=== PATIENT | male | born 1985 | race Caucasian/White ===

== ENCOUNTER → 2021-01-20 09:13 | Outpatient (CLI) | payer MEDICAID, SELFPAY ==
[2021-01-20 12:30] LABS: Absolute Lymphocyte Count 1.95 X10^3/uL (0.83-4.51); Absolute Neutrophil Count 2.9 X10^3/uL (2.0-7.7); Basophil# 0.05 X10^3/uL; Basophil% 0.9 % (0-1); Eosinophil# 0.33 X10^3/uL; Eosinophils% 5.7 % (0-5); Hematocrit 45.7 % (40-54); Hemoglobin 15.3 g/dL (13.0-16.5); Lymphocyte # 1.95 X10^3/ul (0.83-4.51); Lymphocyte % 33.6 % (19-41); Mean Corp Hgb Conc 33.5 g/dL (32-36); Mean Corpuscular Hgb 28.2 pg (27.0-32.0); Mean Corpuscular Volume 84.2 fL (80-94); Monocyte# 0.56 X10^3/uL; Monocyte% 9.7 % (0-10); NRBC Flagged by Analyzer 0 % (0-5); Neutrophil % 49.9 % (47-70); Platelet Count 227 K/mm3 (150-450); RBC Distribution Width CV 14.2 % (11.6-14.6); RBC Distribution Width SD 43.3 fl (35.1-43.9); Red Blood Count 5.43 M/mm3 (4.6-6.2); White Blood Count 5.8 K/mm3 (4.4-11.0)
[2021-01-20 12:51] LABS: Hemoglobin A1c 5.2 % (3.8-5.6)
[2021-01-20 12:57] LABS: ALB/GLOB Ratio 1.1 RATIO (0.9-2.4); AST(SGOT) 19 U/L (15-37); Alanine Aminotransfer ALT/SGPT 42 U/L (16-61); Albumin, Serum 3.8 g/dL (3.2-5.0); Alkaline Phosphatase 51 U/L (45-117); Anion Gap 6 (5-15); BUN 13 mg/dL (7-18); BUN/Creat Ratio 11.8 RATIO (10-20); Calcium,Total 8.5 mg/dL (8.5-10.1); Chloride 106 mmol/L (98-107); Cholesterol 192 mg/dL (200); EST Glomerular Filtration Rate 81 mL/min (>60); Est Glom Filt Rate - Afr Amer 97 mL/min (>60); Globulin 3.5 g/dL (2.2-4.2); Glucose 88 mg/dL (74-106); High Density Lipoprotein 53 mg/dL; Protein, Total 7.3 g/dL (6.4-8.2); Sodium Level 138 mmol/L (136-145); Thyroid Stim Hormone (TSH) 0.35 uIU/mL (0.358-3.74); Triglycerides 121 mg/dL; Very Low Density Lipoprotein 24 mg/dL (5-40)
[2021-01-20 13:11] LABS: HIV - WCH Non-Reactive (Nonreactive); Syphilis Antibodies Non-reactive; Vitamin D,25 Hydroxy 26.1 ng/mL
[2021-01-20 14:03] LABS: Chlamydia Trachomatis by PCR Negative (Negative); Neisserai gonorrhoeae by PCR Negative (Negative); Probe Check PASS; Sample Adequacy Control PASS; Specimen Processing Control PASS; Trichomonas Vag DNA by PCR Negative (Negative)
[2021-01-21 05:06] LABS: HEPATITIS B SURFACE AG Negative (Negative); Hepatitis A AB, Total Negative (Negative); Hepatitis A IgM Antibody Negative (Negative); Hepatitis B Core AB IgM Negative (Negative); Hepatitis B Core Ab Total Negative (Negative); Hepatitis C Ab <0.1 s/co ratio (0.0-0.9)
[2021-01-21 10:42] LABS: Hep B Surface Antibodies Reactive (.)
== END ==
DX: Z00.00 Encounter for general adult medical examination without abnormal findings (principal); M79.10 Myalgia, unspecified site; E66.9 Obesity, unspecified; Z11.3 Encounter for screening for infections with a predominantly sexual mode of transmission
CPT/HCPCS: 36415; 80053; 80061; 82306; 83036; 84443; 85025; 86703; 86704; 86705; 86706; 86708; 86709; 86780; 86803; 87340; 87491; 87591; 87661

== ENCOUNTER 2022-04-25 12:05 | Inpatient (IN) | payer BC, MEDICAID, SELFPAY ==
[2022-04-25] VITALS (10 sets, daily range): BP systolic 151–183; BP diastolic 96–132; PULSE 110–120; RESP 12–22; TEMP 36.2–37.2; O2SAT 95–99; BMI 38.2; BMI 38.4
--- NOTE | 2022-04-25 12:21 | EKG12_ITS ---
Test Reason : DETOX Blood Pressure : / mmHG Vent. Rate : 101 BPM Atrial Rate : 101 BPM P-R Int : 132 ms QRS Dur : 092 ms QT Int : 336 ms P-R-T Axes : 043 -25 050 degrees QTc Int : 435 ms Sinus tachycardia Incomplete right bundle branch block Borderline ECG Confirmed by GRAHAM LOAIZA, DAMIAN ([id number]), purchase request editor DINORAH RAY ([id number]) on 04/27/2022 11:45:13 AM Referred By: Confirmed By:DAMIAN STEVENSON MD
--- NOTE | 2022-04-25 12:22 | EDS_ITS ---
HPI History of Present Illness Chief Complaint: Substance Abuse Narrative Narrative: 37-year-old male presenting for EtOH detox. He states he has been drinking heavily for about 6 months which is increased over the last 3. He states he drinks about 750 mL of vodka daily. This is 40 proof. Patient states that he does start to get shaky at about 12 hours if he abstains from drinking. He states he is able to make it through work but gets the shakes at the end of the day and starts to drink immediately when he gets home. He denies withdrawal seizures. He has not gone longer than about 12 hours without alcohol. He states he used to have a history of drug abuse and he was able to become clean going to AA but started drinking. Patient states he believes he has undiagnosed hypertension because his blood pressure was high on his last physical exam which he failed for work. He states he smokes a pack of cigarettes per day. Patient states he takes omeprazole daily because his body rejects alcohol if he does not take something for acid reflux. He denies other known medical problems. He does not have a PCP. PFSH PFS Home Medications NK 04/25/22 [History Last Taken Unknown] Allergy/AdvReac Type Severity Reaction Status Date / Time No Known Allergies Allergy Verified 04/25/22 12:08 Social History Smoking Status: Current every day smoker tobacco type: cigarettes ROS ROS ED Constitutional Constitutional ED: Denies chills or fever(s) Eyes Eyes: Denies change in vision ENT ENT ED: Denies rhinorrhea or sore throat Cardiovascular Cardiovascular: Denies chest pain or palpitations Respiratory/Chest Respiratory/Chest: Denies cough or dyspnea Gastrointestinal Gastrointestinal: Denies abdominal pain or constipation Genitourinary Genitourinary ED: Denies dysuria Musculoskeletal Musculoskeletal: Denies arthralgias or back pain Integumentary Denies abscess or Abrasions Neurologic Neurologic: Denies headache(s) or paresthesias Psychiatric Psychiatric: Denies anxiety or depression EXAM Physical Exam Const Vital Signs: 04/25/22 12:06 Temperature 97.7 F L Temperature Source Temporal Pulse Rate 120 H Respiratory Rate 16 Blood Pressure 170/132 H Blood Pressure Mean 144 Pulse Ox 96 Oxygen Delivery Method Room Air Positive well nourished General Appearance ED: NAD; Negative for pallor HEENT Reports moist mucous membranes atraumatic Eyes PERRL and EOMs intact bilaterally General Eye ED: Negative for pale conjunctiva or scleral icterus Chest Wall inspection of chest normal and palpation of chest normal Resp normal respiratory effort and clear to auscultation bilaterally Auscultation: Negative for rales, rhonchi or wheezes Cardio regular rhythm Rate: tachycardic GI soft to palpation Neuro oriented x3 and CN's II-XII intact bilaterally Sensorium / Orientation: alert Motor Exam: strength 5/5 throughout Psych mental status grossly normal and thought process normal Skin General Skin Exam: Negative for jaundice or pallor MDM MDM MDM Narrative Medical decision making narrative: 37-year-old male presenting for EtOH detox. He states his last drink was about 3 AM. He states he feels like he is going to start withdrawing soon. He is given 1 mg of Ativan. EKG was obtained because the patient was tachycardic however his EKG on my interpretation shows a normal sinus rhythm with a ventricular rate of 101 bpm without sign of ischemic change or dysrhythmia. He does report that he believes he has undiagnosed hypertension which was found at his last physical exam for work. He smokes a pack of cigarettes per day. Patient was given a nicotine patch. CBC and CMP are unremarkable. Lipase normal. Urine drug screen negative. EtOH is also normal. We will discussed the patient with the hospitalist for admission. Impression: 1. History of EtOH abuse 2. Presentation for EtOH detox 3. Hypertension Lab Data Attestation: I reviewed the patient's lab results. Labs: Laboratory Results - last 24 hr 04/25/22 04/25/22 04/25/22 12:30 12:46 12:46 WBC 8.5 RBC 4.91 Hgb 15.4 Hct 45.5 MCV 92.7 MCH 31.4 MCHC 33.8 RDW Std Deviation 44.8 H RDW Coeff of Angie 13.2 Plt Count 188 MPV 11.4 Immature Gran % (Auto) 0.500 Neut % (Auto) 58.1 Lymph % (Auto) 28.7 [place] % (Auto) 9.4 Eos % (Auto) 2.4 Baso % (Auto) 0.9 Absolute Neuts (auto) 4.9 Absolute Lymphs (auto) 2.43 Nucleated RBC % 0 Sodium Potassium Chloride Carbon Dioxide Anion Gap BUN Creatinine Estim Creat Clear Calc Est GFR (MDRD) Af Amer Est GFR (MDRD) Non-Af BUN/Creatinine Ratio Glucose Calcium Total Bilirubin AST ALT Alkaline Phosphatase Total Protein Albumin Globulin Albumin/Globulin Ratio Urine Opiates Screen NEGATIVE Urine Methadone Screen NEGATIVE Ur Barbiturates Screen NEGATIVE Ur Phencyclidine Scrn NEGATIVE Ur Amphetamines Screen NEGATIVE MDMA (Ecstasy) Screen NEGATIVE U Benzodiazepines Scrn NEGATIVE Urine Cocaine Screen NEGATIVE U Cannabinoids Screen NEGATIVE Ur Drug Screen Comment Ethyl Alcohol < 3.0 04/25/22 12:46 WBC RBC Hgb Hct MCV MCH MCHC RDW Std Deviation RDW Coeff of Angie Plt Count MPV Immature Gran % (Auto) Neut % (Auto) Lymph % (Auto) [place] % (Auto) Eos % (Auto) Baso % (Auto) Absolute Neuts (auto) Absolute Lymphs (auto) Nucleated RBC % Sodium 141 Potassium 3.9 Chloride 106 Carbon Dioxide 28.0 Anion Gap 7 BUN 12 Creatinine 1.12 Estim Creat Clear Calc 93.24 Est GFR (MDRD) Af Amer 95 Est GFR (MDRD) Non-Af 78 BUN/Creatinine Ratio 10.7 Glucose 95 Calcium 8.9 Total Bilirubin 0.60 AST 87 H ALT 142 H Alkaline Phosphatase 79 Total Protein 7.7 Albumin 3.7 Globulin 4.0 Albumin/Globulin Ratio 0.9 Urine Opiates Screen Urine Methadone Screen Ur Barbiturates Screen Ur Phencyclidine Scrn Ur Amphetamines Screen MDMA (Ecstasy) Screen U Benzodiazepines Scrn Urine Cocaine Screen U Cannabinoids Screen Ur Drug Screen Comment Ethyl Alcohol Discharge Plan Triage Chief Complaint: Substance Abuse ED Provider: Amandeep Khan Dx/Rx/DC Orders Prescriptions: No Action NK Primary Care Provider: Care Physician,No Primary Referrals: Care Physician,No Primary [Primary Care Provider] -
[2022-04-25 12:55] LABS: Amphetamine Urine VISTA NEGATIVE (<1000 ng/mL); Barbiturate Urine VISTA NEGATIVE (< 200 ng/mL); Benzodiazepine Urine VISTA NEGATIVE (< 200 ng/mL); Cocaine Urine VISTA NEGATIVE (< 300 ng/mL); Ecstacy Urine VISTA NEGATIVE (< 500 ng/mL); Methadone Urine VISTA NEGATIVE (< 300 ng/mL); PCP Urine VISTA NEGATIVE (< 25 ng/mL); THC Urine VISTA NEGATIVE (< 50 ng/mL); Vista UDS pH Range 6
[2022-04-25 12:55] LABS: Absolute Lymphocyte Count 2.43 X10^3/uL (0.83-4.51); Absolute Neutrophil Count 4.9 X10^3/uL (2.0-7.7); Basophil# 0.08 X10^3/uL; Basophil% 0.9 % (0-1); Eosinophils% 2.4 % (0-5); Hematocrit 45.5 % (40-54); Hemoglobin 15.4 g/dL (13.0-16.5); Lymphocyte # 2.43 X10^3/ul (0.83-4.51); Lymphocyte % 28.7 % (19-41); Mean Corp Hgb Conc 33.8 g/dL (32-36); Mean Corpuscular Hgb 31.4 pg (27.0-32.0); Mean Corpuscular Volume 92.7 fL (80-94); Mean Platelet Vol. 11.4 fl (6.2-12.0); Monocyte% 9.4 % (0-10); NRBC Flagged by Analyzer 0 % (0-5); Neutrophil # 4.92 X10^3/uL (2.7-7.7); Neutrophil % 58.1 % (47-70); Platelet Count 188 K/mm3 (150-450); RBC Distribution Width CV 13.2 % (11.6-14.6); RBC Distribution Width SD 44.8 fl (35.1-43.9); Red Blood Count 4.91 M/mm3 (4.6-6.2); White Blood Count 8.5 K/mm3 (4.4-11.0)
[2022-04-25] MEDS: LORazepam 2 MG/ML Syringe 1 MG IV (13:00)
[2022-04-25 13:14] LABS: ALB/GLOB Ratio 0.9 RATIO (0.9-2.4); AST(SGOT) 87 U/L (15-37); Alanine Aminotransfer ALT/SGPT 142 U/L (16-61); Albumin, Serum 3.7 g/dL (3.2-5.0); Alkaline Phosphatase 79 U/L (45-117); Anion Gap 7 (5-15); BUN 12 mg/dL (7-18); BUN/Creat Ratio 10.7 RATIO (10-20); Calcium,Total 8.9 mg/dL (8.5-10.1); Chloride 106 mmol/L (98-107); Creatinine, Serum 1.12 mg/dL (0.70-1.30); EST Glomerular Filtration Rate 78 mL/min (>60); Est Glom Filt Rate - Afr Amer 95 mL/min (>60); Estimated Creatinine Clearance 93.24 ml/min; Glucose 95 mg/dL (74-106); Potassium 3.9 mmol/L (3.5-5.1); Protein, Total 7.7 g/dL (6.4-8.2); Sodium Level 141 mmol/L (136-145)
[2022-04-25 13:18] LABS: Alcohol, Blood (Medical)-Serum < 3.0 mg/dL
--- NOTE | 2022-04-25 13:32 | HP.PCM.HOS_ITS ---
HPI - General General Date of Admission: 04/25/22 Date of Service: 04/25/22 Chief Complaint: acute alcohol withdrawal HPI Narrative ROSELYN LEA, is a 37 M with a PMH as outlined who presents via the ED on 04/25/2022 with a complaint of alcohol withdrawal. He says he drinks ~ 750mls of vodka daily and said he had been drinking heavily for the last ~ 3 months. He says he drinks immediately he gets home, and he starts getting into withdrawal ~ 12 hours after his last drink. He also said his BP has been running high, but he is not a known hypertensive. He did identification on drug use but said he had been smoking a pack of cigarettes daily. He has not seen a primary care doctor in a while. He denied any palpitations or dizziness, tremors, chest pain, nausea or vomiting. Review of systems otherwise negative. [facility] Home Medications NK 04/25/22 [History Last Taken Unknown] Allergy/AdvReac Type Severity Reaction Status Date / Time No Known Allergies Allergy Verified 04/25/22 12:08 Social History Smoking Status: Current every day smoker tobacco type: cigarettes ROS Constitutional Constitutional: Reports fatigue, malaise and weakness; Denies anorexia, change in weight, chills or fever(s) Eyes Eyes: Denies change in vision ENT HEENT: Denies dysphagia, headache(s), sinus pressure or sore throat Cardiovascular Cardiovascular: Denies dyspnea on exertion, edema, lightheadedness, orthopnea, palpitations, paroxysmal nocturnal dyspnea, rapid heart rate or syncope Respiratory/Chest Respiratory/Chest: Denies cough, dyspnea, productive cough, shortness of breath at rest or shortness of breath with exertion Gastrointestinal Gastrointestinal: Denies abdominal pain, constipation, diarrhea, nausea or vomiting Genitourinary Genitourinary: Denies burning urination or dysuria Musculoskeletal Musculoskeletal: Denies arthralgias or back pain Neurologic Neurologic: Denies confusion, dizziness, focal weakness, headache(s), numbness, seizures or syncope Psychiatric Psychiatric: Denies anxiety Vital Signs Vital Signs Vital Signs: 04/25/22 12:06 Temperature 97.7 F L Temperature Source Temporal Pulse Rate 120 H Respiratory Rate 16 Blood Pressure 170/132 H Blood Pressure Mean 144 Pulse Ox 96 Oxygen Delivery Method Room Air Weight Weight: 266 lb 12.149 oz Body Mass Index (BMI) 38.2 Physical Exam Const alert, oriented x3 and no apparent distress General Appearance: cooperative HEENT normocephalic, head/scalp atraumatic, hearing grossly normal bilaterally and moist oral mucous membranes Mouth: oral and palatal mucosa normal Eyes PERRL, EOMs intact bilaterally and conjunctivae normal Neck no lymphadenopathy and supple Resp normal respiratory effort, no retractions, no use of accessory muscles and clear to auscultation bilaterally Cardio regular rhythm, S1 normal heart sound, S2 normal heart sound and no murmurs Cardio Narrative: tachycardic GI normal to inspection, nondistended, normoactive bowel sounds, soft to palpation, non-tender and non-distended Extremity normal to inspection, full ROM and no clubbing, cyanosis or edema Neuro oriented x3, CN's II-XII intact bilaterally, moves all extremities and no focal motor deficits Sensorium / Orientation: awake and alert Motor Exam: strength 5/5 throughout Psych affect normal Results Lab / Micro Data Result Diagrams: 04/25/22 12:46 04/25/22 12:46 Labs: Laboratory Results - last 24 hr 04/25/22 12:30: Urine Opiates Screen NEGATIVE, Urine Methadone Screen NEGATIVE, Ur Barbiturates Screen NEGATIVE, Ur Phencyclidine Scrn NEGATIVE, Ur Amphetamines Screen NEGATIVE, MDMA (Ecstasy) Screen NEGATIVE, U Benzodiazepines Scrn NEGATIVE, Urine Cocaine Screen NEGATIVE, U Cannabinoids Screen NEGATIVE, Ur Drug Screen Comment 04/25/22 12:46: WBC 8.5, RBC 4.91, Hgb 15.4, Hct 45.5, MCV 92.7, MCH 31.4, MCHC 33.8, RDW Std Deviation 44.8 H, RDW Coeff of Angie 13.2, Plt Count 188, MPV 11.4, Immature Gran % (Auto) 0.500, Neut % (Auto) 58.1, Lymph % (Auto) 28.7, [place] % (Auto) 9.4, Eos % (Auto) 2.4, Baso % (Auto) 0.9, Absolute Neuts (auto) 4.9, Absolute Lymphs (auto) 2.43, Nucleated RBC % 0 04/25/22 12:46: Ethyl Alcohol < 3.0 04/25/22 12:46: Sodium 141, Potassium 3.9, Chloride 106, Carbon Dioxide 28.0, Anion Gap 7, BUN 12, Creatinine 1.12, Estim Creat Clear Calc 93.24, Est GFR (MDRD) Af Amer 95, Est GFR (MDRD) Non-Af 78, BUN/Creatinine Ratio 10.7, Glucose 95, Calcium 8.9, Total Bilirubin 0.60, AST 87 H, ALT 142 H, Alkaline Phosphatase 79, Total Protein 7.7, Albumin 3.7, Globulin 4.0, Albumin/Globulin Ratio 0.9 Assessment & Plan Assessment/Plan (1) Alcohol withdrawal: PLAN: Plan #Acute alcohol withdrawal * admit to PCU o/a of tachycardia and markedly elevated BP * start on alcohol withdrawal protocol with phenobarbital * monitor CIWA score * thiamine, multivite and folic acid * #Elevated blood pressure * doesnt see a PCP and may have chronically elevated BP. It may also be due to alcohol withdrawal * on clonidine as part of alcohol withdrawal * add IV hydralazine prn * if BP remains elevated, will start oral BP meds * #Tachycardia: * also likely due to alcohol withdrawal. * Anticipating it will improve once alcohol withdrawal protocol is started. * wll monitor * DVT prophylaxis: low risk, encourage ambulation Charges/Coding Visit Charges Inpatient E&M: 65474 Init Hosp L3
[2022-04-25] MEDS: Phenobarbital 32.4 MG Tablet 64.8 MG PO ×3 (15:41→22:56)
[2022-04-25] MEDS: Clonidine HCl 0.1 MG, Clonidine HCl 0.2 MG 0.3 MG PO (15:41)
[2022-04-25] MEDS: LORazepam 1 MG Tablet 2 MG PO ×3 (15:41→23:15)
[2022-04-25] MEDS: hydrALAZINE 20 MG/ML Vial 10 MG IV (17:27)
[2022-04-26] VITALS (17 sets, daily range): BP systolic 150–176; BP diastolic 105–134; PULSE 93–121; RESP 16–20; TEMP 36.3–37; O2SAT 96–99
[2022-04-26] MEDS: LORazepam 1 MG Tablet 2 MG PO (02:36)
[2022-04-26] MEDS: Phenobarbital 32.4 MG Tablet 64.8 MG PO ×5 (02:37→23:26)
[2022-04-26] MEDS: hydrALAZINE 20 MG/ML Vial 10 MG IV (02:43)
[2022-04-26] MEDS: amLODIPine 10 MG Tablet PO (08:19)
[2022-04-26] MEDS: Folic Acid 1 MG Tablet PO (08:26)
[2022-04-26] MEDS: Thiamine Hydrochloride 100 MG Tablet PO (08:26)
[2022-04-26] MEDS: Metoprolol Tartrate 25 MG Tablet 12.5 MG PO ×2 (09:39→23:26)
[2022-04-26] MEDS: FLU VACC QS2022-23(6MOS UP)/PF 60 MCG/0.5 ML SYRINGE IM (09:39)
[2022-04-26] MEDS: hydrOXYzine PAM 25 MG Capsule 50 MG PO (09:44)
--- NOTE | 2022-04-26 11:17 | PN.HOSP_ITS ---
Subjective Subjective Patient seen and examined. He still has some tremors. He has no other active complaints and review of systems is otherwise negative. BLood pressure remains elevated. Objective Data Objective Data Vital Signs: Vital Signs Temp Pulse Resp BP Pulse Ox O2 Del Method 98.6 F 93 20 H 176/105 H 96 Room Air 04/26/22 08:20 04/26/22 11:10 04/26/22 11:10 04/26/22 11:10 04/26/22 11:10 04/26/22 08:20 Oxygen Delivery Method Room Air Weight: 267 lb 13.786 oz Body Mass Index (BMI) 38.4 Lab / Micro Data Result Diagrams: 04/25/22 12:46 04/25/22 12:46 Labs: Laboratory Results - last 24 hr 04/25/22 12:30: Urine Opiates Screen NEGATIVE, Urine Methadone Screen NEGATIVE, Ur Barbiturates Screen NEGATIVE, Ur Phencyclidine Scrn NEGATIVE, Ur Amphetamines Screen NEGATIVE, MDMA (Ecstasy) Screen NEGATIVE, U Benzodiazepines Scrn NEGATIVE, Urine Cocaine Screen NEGATIVE, U Cannabinoids Screen NEGATIVE, Ur Drug Screen Comment 04/25/22 12:46: WBC 8.5, RBC 4.91, Hgb 15.4, Hct 45.5, MCV 92.7, MCH 31.4, MCHC 33.8, RDW Std Deviation 44.8 H, RDW Coeff of Angie 13.2, Plt Count 188, MPV 11.4, Immature Gran % (Auto) 0.500, Neut % (Auto) 58.1, Lymph % (Auto) 28.7, [place] % (Auto) 9.4, Eos % (Auto) 2.4, Baso % (Auto) 0.9, Absolute Neuts (auto) 4.9, Absolute Lymphs (auto) 2.43, Nucleated RBC % 0 04/25/22 12:46: Ethyl Alcohol < 3.0 04/25/22 12:46: Sodium 141, Potassium 3.9, Chloride 106, Carbon Dioxide 28.0, Anion Gap 7, BUN 12, Creatinine 1.12, Estim Creat Clear Calc 93.24, Est GFR (MDRD) Af Amer 95, Est GFR (MDRD) Non-Af 78, BUN/Creatinine Ratio 10.7, Glucose 95, Calcium 8.9, Total Bilirubin 0.60, AST 87 H, ALT 142 H, Alkaline Phosphatase 79, Total Protein 7.7, Albumin 3.7, Globulin 4.0, Albumin/Globulin Ratio 0.9 Physical Exam Const alert, oriented x3 and no apparent distress General Appearance: cooperative HEENT normocephalic, head/scalp atraumatic, hearing grossly normal bilaterally and moist oral mucous membranes Eyes PERRL, EOMs intact bilaterally and conjunctivae normal Neck no lymphadenopathy and supple Resp normal respiratory effort, no retractions, no use of accessory muscles and clear to auscultation bilaterally Cardio regular rhythm, S1 normal heart sound, S2 normal heart sound and no murmurs Cardio Narrative: tachycardic GI normal to inspection, nondistended, normoactive bowel sounds, soft to palpation, non-tender and non-distended Extremity normal to inspection, full ROM and no clubbing, cyanosis or edema Neuro oriented x3, CN's II-XII intact bilaterally, moves all extremities and no focal motor deficits Sensorium / Orientation: awake and alert Motor Exam: strength 5/5 throughout Psych affect normal Assessment & Plan Assessment/Plan (1) Alcohol withdrawal: PLAN: Plan #Acute alcohol withdrawal * on alcohol withdrawal protocol with phenobarbital * monitor CIWA score * thiamine, multivite and folic acid * #Hypertension * patient now tells me today he was on lisinopril in the past but defaulted. * doesnt follow up with a PCP. He did recently fail a physical at work because of elevated BP * will start on PO amlodipine and add on metoprolol also because of his tachycardia * IV lopressor prn * * #Tachycardia: * also likely due to alcohol withdrawal. * still tachycardic * started on metoprolol * will get 2D echo tomorrow * wll monitor * check TSH also. He had TSH of 0.35 in January 2021, but doesnt appear to have been worked up further. * DVT prophylaxis: low risk, encourage ambulation Charges/Coding Visit Charges Inpatient E&M: 49084 Subs Hosp L2
[2022-04-26 12:47] LABS: T4 Free Direct 0.83 ng/dL (0.76-1.46); Thyroid Stim Hormone (TSH) 0.45 uIU/mL (0.358-3.74)
[2022-04-26] MEDS: Pantoprazole Sodium 20 MG Tablet PO (14:54)
[2022-04-26] MEDS: 0.9% Saline Lock 10 ML Syringe IV (18:29)
[2022-04-26] MEDS: Metoprolol Tartrate 5 MG/5 ML Vial IV (18:29)
[2022-04-26] MEDS: Gabapentin 300 MG Capsule PO (23:45)
[2022-04-26] MEDS: Ondansetron 8 MG Tablet PO (23:45)
[2022-04-27] VITALS (14 sets, daily range): BP systolic 125–150; BP diastolic 99–108; PULSE 73–111; RESP 16–18; TEMP 35.8–36.9; O2SAT 95–99
--- NOTE | 2022-04-27 03:57 | NURSING ---
PATIENT PULLING OFF TELE MULTIPLE TIMES STATES DOING THIS DURING SLEEP. EDUCATION PROVIDED AND PATIENT VERBALIZES UNDERSTANDING YET WONT KEEP TELE MONITOR ON.
[2022-04-27] MEDS: Phenobarbital 32.4 MG Tablet 64.8 MG PO ×5 (05:55→22:40)
[2022-04-27] MEDS: Folic Acid 1 MG Tablet PO (09:45)
[2022-04-27] MEDS: Thiamine Hydrochloride 100 MG Tablet PO (09:45)
[2022-04-27] MEDS: Pantoprazole Sodium 20 MG Tablet PO (09:45)
[2022-04-27] MEDS: Metoprolol Tartrate 25 MG Tablet 12.5 MG PO ×2 (09:45→19:50)
[2022-04-27] MEDS: amLODIPine 10 MG Tablet PO (09:45)
--- NOTE | 2022-04-27 10:12 | ADDICTION ---
This content writer met with PT to conduct ASAM, MSE, AUDIT, DUDIT assessments and to plan for d/c. PT A+Ox4 and participated actively. All assessments completed and placed in PT's chart. PT plans to f/u with follow-up treatment services, however he wants to visit his aunt in [place] and he reports he has vacation plan. He reports taht he will follow up with [facility] once he is finished with vacation. PT did not indicate a need for transportation post d/c from [facility].
--- NOTE | 2022-04-27 12:11 | PN.HOSP_ITS ---
Subjective Subjective Patient seen and examined. He had no active complaints and had an uneventful night. Review of systems otherwise negative. Objective Data Objective Data Vital Signs: Vital Signs Temp Pulse Resp BP Pulse Ox O2 Del Method 97.4 F L 111 H 18 149/106 H 97 Room Air 04/27/22 08:20 04/27/22 10:59 04/27/22 08:20 04/27/22 09:45 04/27/22 08:20 04/27/22 09:49 Oxygen Delivery Method Room Air Weight: 267 lb 13.786 oz Body Mass Index (BMI) 38.4 Lab / Micro Data Result Diagrams: 04/25/22 12:46 04/25/22 12:46 Labs: Laboratory Results - last 24 hr 04/26/22 11:26: TSH 0.45, Free T4 0.83 Physical Exam Const alert, oriented x3 and no apparent distress General Appearance: cooperative HEENT normocephalic, head/scalp atraumatic, hearing grossly normal bilaterally and moist oral mucous membranes Head and Scalp: normocephalic Mouth: oral and palatal mucosa normal Eyes PERRL, EOMs intact bilaterally and conjunctivae normal Neck no lymphadenopathy and supple Resp normal respiratory effort, no retractions, no use of accessory muscles and clear to auscultation bilaterally Cardio regular rhythm, S1 normal heart sound, S2 normal heart sound and no murmurs Cardio Narrative: tachycardic; is improving GI normal to inspection, nondistended, normoactive bowel sounds, soft to palpation, non-tender and non-distended Extremity normal to inspection, full ROM and no clubbing, cyanosis or edema Neuro oriented x3, CN's II-XII intact bilaterally, moves all extremities and no focal motor deficits Sensorium / Orientation: awake and alert Motor Exam: strength 5/5 throughout Psych affect normal Assessment & Plan Assessment/Plan (1) Alcohol withdrawal: PLAN: Plan #Acute alcohol withdrawal * on alcohol withdrawal protocol with phenobarbital * monitor CIWA score * thiamine, multivite and folic acid * #Hypertension * patient now tells me he was on lisinopril in the past but defaulted. * doesnt follow up with a PCP. He did recently fail a physical at work because of elevated BP * started on PO amlodipine and metoprolol also because of his tachycardia * IV lopressor prn * * #Tachycardia: * also likely due to alcohol withdrawal. * improving * started on metoprolol * TSH and free T4 WNL * DVT prophylaxis: low risk, encourage ambulation Charges/Coding Visit Charges Inpatient E&M: 60113 Subs Hosp L2
--- NOTE | 2022-04-27 12:13 | ECHOCS_ITS ---
Reason For Study: ARRYTHMIA Procedure This was a 2D Doppler, Color Flow transthoracic echocardiogram. Technically difficult study due to patient being unable to stay awake. Left Ventricle Normal LV size. Mild concentric left ventricular hypertrophy. Left ventricular systolic function is normal. The estimated ejection fraction is 65 %. Stage 1 diastolic dysfunction. No regional wall motion abnormalities noted. Right Ventricle Normal RV size. Normal systolic function. Atria Normal left atrium. Normal right atrium. Mitral Valve Normal mitral valve. Tricuspid Valve Normal tricuspid valve. Aortic Valve Normal aortic valve. Trisinus/trileaflet aortic valve. Pulmonic Valve The pulmonic valve is not well visualized. Great Vessels Normal aortic root. The pulmonary artery is normal size. Normal inferior vena cava. Pericardium/Pleural No pericardial effusion. MMode/2D Measurements & Calculations LVIDd: 4.6 cm IVSd: 1.3 cm Ao root diam: 3.2 cm LVIDs: 3.4 cm LVPWd: 1.5 cm FS: 26.9 % LAV(MOD-bp): 39.5 ml LVAd ap4: 37.3 cm2 SV(MOD-sp4): 64.5 ml LAV(MOD-bp) Indexed: 16.7 ml/m2 LVLd ap4: 9.9 cm LAV(MOD-sp2): 41.6 ml EDV(MOD-sp4): 113.9 ml LAV(MOD-sp4): 40.6 ml EDV(sp4-el): 119.7 ml LVAs ap4: 21.6 cm2 LVLs ap4: 7.7 cm ESV(MOD-sp4): 49.4 ml ESV(sp4-el): 51.5 ml EF(MOD-sp4): 56.6 % EF(sp4-el): 57.0 % SV(sp4-el): 68.2 ml LA A4 area: 16.7 cm2 LA dimension(2D): 3.9 cm RA A4 area: 16.5 cm2 Time Measurements MV dec time: 0.14 sec Doppler Measurements & Calculations MV E max wendy: 47.5 cm/sec MV V2 max: 57.1 cm/sec MV dec slope: 454.5 cm/sec2 MV A max wendy: 52.5 cm/sec MV max P.3 mmHg MV E/A: 0.90 MV V2 mean: 33.7 cm/sec MV mean P.53 mmHg MV V2 VTI: 16.7 cm Ao V2 max: 115.2 cm/sec LV V1 max: 102.7 cm/sec PA V2 max: 84.2 cm/sec Ao max P.3 mmHg LV V1 max P.2 mmHg PA V2 mean: 61.0 cm/sec Ao V2 mean: 80.4 cm/sec LV V1 mean P.6 mmHg Ao mean P.0 mmHg LV V1 mean: 76.7 cm/sec Ao V2 VTI: 19.8 cm LV V1 VTI: 16.7 cm ECHO/Echo Complete W/ Contrast Interpretation Summary Normal LV size. Left ventricular systolic function is normal. The estimated ejection fraction is 65 %. Stage 1 diastolic dysfunction. Mild concentric left ventricular hypertrophy. Contrast injection was performed. Ordering Physician: Genesis Barreto Referring Physician: DOYLE PCP Performed By: Elvia Car RCS
[2022-04-27] MEDS: Acetaminophen 325 MG Tablet 650 MG PO (13:31)
[2022-04-27] MEDS: hydrOXYzine PAM 25 MG Capsule 50 MG PO (13:31)
[2022-04-27] MEDS: Ondansetron 8 MG Tablet PO (18:11)
[2022-04-27] MEDS: Dicyclomine 10 MG Capsule 20 MG PO (18:11)
[2022-04-28 02:00] VITALS: BP 114/83; PULSE 77; RESP 20; TEMP 36.3; O2SAT 97
[2022-04-28 03:00] VITALS: PULSE 81
[2022-04-28] MEDS: Phenobarbital 32.4 MG Tablet 64.8 MG PO (05:31)
[2022-04-28 07:00] VITALS: PULSE 69
[2022-04-28 08:15] VITALS: BP 128/97; PULSE 77; RESP 14; TEMP 36.6; O2SAT 96
[2022-04-28 08:19] VITALS: PULSE 77
[2022-04-28] MEDS: Metoprolol Tartrate 25 MG Tablet 12.5 MG PO (08:19)
[2022-04-28] MEDS: amLODIPine 10 MG Tablet PO (08:20)
[2022-04-28] MEDS: Thiamine Hydrochloride 100 MG Tablet PO (08:20)
[2022-04-28] MEDS: Folic Acid 1 MG Tablet PO (08:20)
[2022-04-28] MEDS: Pantoprazole Sodium 20 MG Tablet PO (08:20)
--- NOTE | 2022-04-28 10:09 | DS.PCM_ITS ---
Providers Date of Admission: 04/25/22 Primary Care Physician: No Primary Care Phys Reason For Visit: ACUTE ALCOHOL WITHDRAWAL Diagnosis Discharge Diagnosis (1) Alcohol withdrawal: Status: Acute Code(s): F10.939 - Alcohol use, unspecified with withdrawal, unspecified Plan #Acute alcohol withdrawal * on alcohol withdrawal protocol with phenobarbital * monitor CIWA score * thiamine, multivite and folic acid * #Hypertension * patient now tells me he was on lisinopril in the past but defaulted. * doesnt follow up with a PCP. He did recently fail a physical at work because of elevated BP * started on PO amlodipine and metoprolol also because of his tachycardia * IV lopressor prn * * #Tachycardia: * also likely due to alcohol withdrawal. * improving * started on metoprolol * TSH and free T4 WNL * DVT prophylaxis: low risk, encourage ambulation Medications at Discharge Home Medications omeprazole 20 mg capsule,delayed release 20 mg PO DAILY reflux 04/25/22 amlodipine 10 mg tablet 10 mg PO DAILY #30 tabs 04/28/22 metoprolol tartrate 25 mg tablet 12.5 mg PO BID #30 tabs 04/28/22 Weight / BMI Weight Weight: 267 lb 13.786 oz Body Mass Index (BMI) 38.4 ABG / Lab / Microbiology Data Result Diagrams: 04/25/22 12:46 04/25/22 12:46 Radiography Diagnostic Testing: Radiology Impression Echocardiogram 04/27/22 12:13 Interpretation Summary Normal LV size. Left ventricular systolic function is normal. The estimated ejection fraction is 65 %. Stage 1 diastolic dysfunction. Mild concentric left ventricular hypertrophy. Contrast injection was performed. Ordering Physician: Genesis Barreto Referring Physician: DOYLE PCP Performed By: Elvia Car RCS Discharge Plan Admission Admit Date/Time: 04/25/22 13:40 Primary Reason for Your Visit: acute alcohol withdrawal, hypertension Attending Provider: Genesis Barreto Primary Care Provider: Care Physician,No Primary Discharge Orders/Prescriptions Prescriptions: New amlodipine 10 mg Tablet 10 mg PO DAILY Qty: 30 2RF metoprolol tartrate 25 mg Tablet 12.5 mg PO BID Qty: 30 2RF Continued omeprazole 20 mg Capsule,Delayed Release(Dr/Ec) 20 mg PO DAILY Referrals / Follow Up: Lisa Morse MD [Med Staff - Active Staff] - Within 2 Weeks (see to establish PCP care) Care Physician,No Primary [Primary Care Provider] - Disposition Disposition (needs filled in before D/C Order can be placed): Home, Self Care
--- NOTE | 2022-04-28 10:11 | DS.PCM_ITS ---
Providers Date of Admission: 04/25/22 Date of Discharge: 04/28/22 Primary Care Physician: No Primary Care Phys Reason For Visit: ACUTE ALCOHOL WITHDRAWAL Diagnosis Discharge Diagnosis (1) Alcohol withdrawal: Status: Acute Code(s): F10.939 - Alcohol use, unspecified with withdrawal, unspecified Plan #Acute alcohol withdrawal * on alcohol withdrawal protocol with phenobarbital * monitor CIWA score * thiamine, multivite and folic acid * #Hypertension * patient now tells me he was on lisinopril in the past but defaulted. * doesnt follow up with a PCP. He did recently fail a physical at work because of elevated BP * started on PO amlodipine and metoprolol also because of his tachycardia * IV lopressor prn * * #Tachycardia: * also likely due to alcohol withdrawal. * improving * started on metoprolol * TSH and free T4 WNL * DVT prophylaxis: low risk, encourage ambulation Medications at Discharge Home Medications omeprazole 20 mg capsule,delayed release 20 mg PO DAILY reflux 04/25/22 amlodipine 10 mg tablet 10 mg PO DAILY #30 tabs 04/28/22 metoprolol tartrate 25 mg tablet 12.5 mg PO BID #30 tabs 04/28/22 Hospital Course Operations None Procedures 2-D Echocardiogram Summary of Care Provided Minutes Spent on Discharge: 45 Hospital Course: ROSELYN LEA, is a 37 M? with a PMH as outlined who presents via the ED on 04/25/2022 with a complaint of alcohol withdrawal. He says he drinks ~ 750mls of vodka daily and said he had been drinking heavily for the last ~ 3 months. He says he drinks immediately he gets home, and he starts getting into withdrawal ~ 12 hours after his last drink. He also said his BP has been running high, but he is not a known hypertensive.? He did identification on drug use but said he had been smoking a pack of cigarettes daily.? He has not seen a primary care doctor in a while.? He denied any palpitations or dizziness, tremors, chest pain, nausea or vomiting.? Review of systems otherwise negative. He was managed for acute alcohol withdrawal. He was started on alcohol withdrawal protocol with phenobarbital. His BP remained elevated during admission, and he said he had previously been started on lisinopril, but had defaulted. His BP improved and tachycardia also improved after being started on PO amlodipine and PO metoprolol. Thyroid function checked was within normal limits. He did well with 3 days of detox and was discharged home o 04/28/2022. He is to follow up with his PCP and addiction medicine within 1-2 weeks. He was given a script for PO amlodipine and metoprolol. Patient seen and examined prior to discharge. He had no active complaints and had an uneventful night. Review of systems is otherwie negative. Labs and vitals reviewed. Home meds reviewed and reconciled. Physical Exam Const alert, oriented x3 and no apparent distress General Appearance: cooperative and comfortable Orientation / Consciousness: awake Exam Limitations: no limitations HEENT normocephalic, head/scalp atraumatic, hearing grossly normal bilaterally and moist oral mucous membranes Mouth: oral and palatal mucosa normal Eyes PERRL, EOMs intact bilaterally and conjunctivae normal Neck no lymphadenopathy and supple Resp normal respiratory effort, no retractions, no use of accessory muscles and clear to auscultation bilaterally Cardio regular rhythm, S1 normal heart sound, S2 normal heart sound and no murmurs GI normal to inspection, nondistended, normoactive bowel sounds, soft to palpation, non-tender and non-distended Extremity normal to inspection, full ROM and no clubbing, cyanosis or edema Skin no rashes or lesions noted Neuro oriented x3, CN's II-XII intact bilaterally, moves all extremities and no focal motor deficits Sensorium / Orientation: awake and alert Motor Exam: strength 5/5 throughout Psych affect normal Weight / BMI Weight Weight: 267 lb 13.786 oz Body Mass Index (BMI) 38.4 ABG / Lab / Microbiology Data Result Diagrams: 04/25/22 12:46 04/25/22 12:46 Radiography Diagnostic Testing: Radiology Impression Echocardiogram 04/27/22 12:13 Interpretation Summary Normal LV size. Left ventricular systolic function is normal. The estimated ejection fraction is 65 %. Stage 1 diastolic dysfunction. Mild concentric left ventricular hypertrophy. Contrast injection was performed. Ordering Physician: Genesis Barreto Referring Physician: ANGELES PCP Performed By: Elvia Car RCS D/C Instructions Discharge Diet: Low fat / Low cholesterol Weight Bearing Status: Weight bearing as tolerated Call your doctor if you observe: Fever of 101 or Higher, Shortness of breath, Dizziness, Swelling in the ankles, Chest pain and Increased palpitations (irregular heartbeat) Meaningful Use Info Meaningful Use Diagnoses (Choose all that apply): None applicable Discharge Plan Admission Admit Date/Time: 04/25/22 13:40 Primary Reason for Your Visit: acute alcohol withdrawal, hypertension Attending Provider: Genesis Barreto Primary Care Provider: Care Physician,Angeles Primary Discharge Orders/Prescriptions Prescriptions: New amlodipine 10 mg Tablet 10 mg PO DAILY Qty: 30 2RF metoprolol tartrate 25 mg Tablet 12.5 mg PO BID Qty: 30 2RF Continued omeprazole 20 mg Capsule,Delayed Release(Dr/Ec) 20 mg PO DAILY Referrals / Follow Up: Giovana Morse MD [Med Staff - Active Staff] - Within 2 Weeks (see to establish PCP care) Care Physician,No Primary [Primary Care Provider] - Disposition Disposition (needs filled in before D/C Order can be placed): Home, Self Care Charges/Coding Visit Charges Inpatient E&M: 19652 Disch Hosp
--- NOTE | 2022-04-28 10:11 | DCINST_ITS ---
Discharge Instructions Diet Discharge Diet: Low fat / Low cholesterol Activity Discharge Activity: Return to Normal Activity Weight Bearing Status: Weight bearing as tolerated Dressing / Incision Call your doctor if you observe: Fever of 101 or Higher, Shortness of breath, Dizziness, Swelling in the ankles, Chest pain and Increased palpitations (irregular heartbeat) Follow Up Care Test Results: Test results from this visit will be discussed in further detail at your follow- up appointment, if applicable. Discharge Plan Admission Admit Date/Time: 04/25/22 13:40 Primary Reason for Your Visit: acute alcohol withdrawal, hypertension Attending Provider: Genesis Barreto Primary Care Provider: Care Physician,No Primary Discharge Orders/Prescriptions Prescriptions: New amlodipine 10 mg Tablet 10 mg PO DAILY Qty: 30 2RF metoprolol tartrate 25 mg Tablet 12.5 mg PO BID Qty: 30 2RF Continued omeprazole 20 mg Capsule,Delayed Release(Dr/Ec) 20 mg PO DAILY Referrals / Follow Up: Giovana Morse MD [Med Staff - Active Staff] - Within 2 Weeks (see to establish PCP care) Care Physician,No Primary [Primary Care Provider] - Disposition Disposition (needs filled in before D/C Order can be placed): Home, Self Care
--- NOTE | 2022-04-28 10:56 | PHA.DC.MC ---
Pharmacy Service has performed discharge medication reconciliation and counseling for this patient. 1. AMLODIPINE 10MG PO DAILY 2. METOPROLOL TARTRATE 12.5MG PO BID The patient's discharge medication list was reviewed for discrepancies and discrepancies were resolved. Home Medications omeprazole 20 mg capsule,delayed release 20 mg PO DAILY reflux 04/25/22 amlodipine 10 mg tablet 10 mg PO DAILY #30 tabs 04/28/22 metoprolol tartrate 25 mg tablet 12.5 mg PO BID #30 tabs 04/28/22 The patient was counseled on the following discharge medications and changes in medications for homegoing were reviewed. The Reason for Use, instructions for use, and potential side effects were reviewed for all new medications. The patient's questions regarding all of their medications were answered. The patient was able to verbally demonstrate an understanding of their discharge medications. Patient counseled by pharmacy informatics specialistCecile.
== END 2022-04-28 11:55 | disposition home or self-care (01) | DRG 897 ==
LOC: ED 12:30 → PCU 14:12
PROVIDERS: Admitting Provider Student in an Organized Health Care Education/Training Program; Emergency Provider Student in an Organized Health Care Education/Training Program; Visit Provider Student in an Organized Health Care Education/Training Program
DX: F10.239 Alcohol dependence with withdrawal, unspecified (principal); F17.210 Nicotine dependence, cigarettes, uncomplicated; I10 Essential (primary) hypertension; Z23 Encounter for immunization; R00.0 Tachycardia, unspecified
CPT/HCPCS: 80053; 80307; 82077; 84439; 84443; 85025; 93005; 93306; 99283; 99406; Q9957; 90686; A4216; C8929

== ENCOUNTER 2023-01-21 08:12 | Inpatient (IN) | payer SELFPAY ==
[2023-01-21] VITALS (8 sets, daily range): BP systolic 113–134; BP diastolic 66–99; PULSE 63–93; RESP 16–18; TEMP 36.3–36.7; O2SAT 96–99; BMI 34.4; BMI 34.0
[2023-01-21 09:07] LABS: ALB/GLOB Ratio 0.9 RATIO (0.9-2.4); AST(SGOT) 17 U/L (15-37); Alanine Aminotransfer ALT/SGPT 31 U/L (16-61); Albumin, Serum 3.5 g/dL (3.2-5.0); Alkaline Phosphatase 77 U/L (45-117); Anion Gap 7 (5-15); BUN 11 mg/dL (7-18); BUN/Creat Ratio 11.5 RATIO (10-20); Calcium,Total 8.6 mg/dL (8.5-10.1); Chloride 105 mmol/L (98-107); Creatinine, Serum 0.95 mg/dL (0.70-1.30); EST Glomerular Filtration Rate 94 mL/min (>60); Est Glom Filt Rate - Afr Amer 114 mL/min (>60); Estimated Creatinine Clearance 109.93 ml/min; Glucose 124 mg/dL (74-106); Potassium 3.7 mmol/L (3.5-5.1); Protein, Total 7.5 g/dL (6.4-8.2); Sodium Level 139 mmol/L (136-145)
[2023-01-21 09:16] LABS: Amphetamine Urine VISTA POSITIVE (<1000 ng/mL); Barbiturate Urine VISTA NEGATIVE (< 200 ng/mL); Benzodiazepine Urine VISTA NEGATIVE (< 200 ng/mL); Cocaine Urine VISTA NEGATIVE (< 300 ng/mL); Ecstacy Urine VISTA NEGATIVE (< 500 ng/mL); Methadone Urine VISTA NEGATIVE (< 300 ng/mL); PCP Urine VISTA NEGATIVE (< 25 ng/mL); THC Urine VISTA POSITIVE (< 50 ng/mL); Vista UDS pH Range 5
[2023-01-21 09:20] LABS: Alcohol, Blood (Medical)-Serum < 3.0 mg/dL
--- NOTE | 2023-01-21 09:59 | EX.ED.DYSGE1 ---
HPI History of Present Illness Chief Complaint: Substance Abuse Detail of Chief Complaint: Alcohol abuse Informant: patient Onset/Context/Timing Onset: Month(s) Context: Sudden Onset Timing: Continuous Quality: 1 pint of vodka a day Location: Not applicable Current Severity: Moderate Maximum Severity: Moderate Worsened by: Absence Relieved by: Drinking alcohol Associated Symptoms Associated Symptoms: Palpitations, sweats and shakes when he abstains Narrative Narrative: Patient is a 37-year-old male. He presents because he needs help with detox. He attempted to detox but developed symptoms of withdrawal and began drinking yesterday. He has not had a drink since last night. He was in the detox program April 2022. He states he did not follow-up with 180 and began to drink again. He lost his job 2 weeks ago. He lives alone. He states he needs help and he cannot do it on his own. He denies headache, visual, ocular auditory symptoms. He presently denies cardiac or respiratory symptoms. He denies GI symptoms. He denies paresthesia, anesthesia or motor Prior similar symptoms: Yes Recent Illness/Hospitalization: No PFSH PFS Medical History Bipolar affective disorder Hypertension Smoker Substance abuse in remission Home Medications omeprazole 20 mg capsule,delayed release 20 mg PO DAILY PRN acid reflux 04/25/22 [History Last Taken Unknown] amlodipine 10 mg tablet 10 mg PO DAILY #30 tabs 04/28/22 [Rx Last Taken 01/20/23] metoprolol tartrate 25 mg tablet 12.5 mg (1/2 x 25 mg) PO BID #30 tabs 04/28/22 [Rx Last Taken 01/20/23] Allergy/AdvReac Type Severity Reaction Status Date / Time No Known Allergies Allergy Verified 01/21/23 08:13 Family History (Updated 01/21/23 @ 12:07 by Tamar Tao) Father STEMI (ST elevation myocardial infarction) Social History (Updated 01/21/23 @ 12:09 by Tamar Tao) household members: none Smoking Status: Current every day smoker tobacco type: cigarettes alcohol intake: current substance use type: marijuana and amphetamines ROS ROS ED Constitutional Constitutional ED: Denies chills, fever(s), subjective, sweats or weight loss Eyes Eyes: Denies blurry vision, change in vision or diplopia ENT ENT ED: Denies ear pain, rhinorrhea or sore throat Cardiovascular Cardiovascular: Reports palpitations; Denies chest pain, orthopnea, paroxysmal nocturnal dyspnea or racing heartbeat Respiratory/Chest Respiratory/Chest: Denies cough, dyspnea on exertion, orthopnea or paroxysmal nocturnal dyspnea Gastrointestinal Gastrointestinal: Denies abdominal pain, nausea or vomiting Genitourinary Genitourinary ED: Denies dysuria, hematuria or urinary frequency Musculoskeletal Musculoskeletal: Denies arthralgias, back pain, myalgias or neck pain Neurologic Neurologic: Denies headache(s) or paresthesias Psychiatric Psychiatric: Denies anxiety Endocrine Endocrinology: Denies cold intolerance or heat intolerance EXAM Physical Exam Const Vital Signs: 01/21/23 08:14 Temperature 97.3 F L Temperature Source Temporal Pulse Rate 86 Respiratory Rate 16 Blood Pressure 134/85 H Blood Pressure Mean 101 Pulse Ox 99 Positive well nourished, well developed and obese General Appearance ED: well developed and NAD; Negative for cyanotic or diaphoretic Nutritional Appearance: obese HEENT Reports moist mucous membranes HEENT Narrative: Head is atraumatic normocephalic. Ears are normal. Nares are patent. Posterior pharynx is normal. Eyes PERRL and EOMs intact bilaterally General Eye ED: Negative for pale conjunctiva or scleral icterus Neck no lymphadenopathy, supple and no JVD Chest Wall inspection of chest normal and palpation of chest normal Resp normal respiratory effort and clear to auscultation bilaterally Cardio regular rate, regular rhythm, S1 normal heart sound, S2 normal heart sound and no murmurs GI normal to inspection, nondistended, normoactive bowel sounds, non-tender, non-distended and no masses; Negative for hepatosplenomegaly Back/Spine no CVA tenderness Back/Spine Narrative: Inspection of the back is normal. Extremity normal to inspection General Extremety ED: Negative for edema or tenderness General Extremity: Negative for edema Neuro oriented x3, CN's II-XII intact bilaterally and no sensory deficits noted Sensorium / Orientation: alert Psych mental status grossly normal Skin no rashes or lesions noted, no wounds and skin turgor normal MDM MDM MDM Narrative Medical decision making narrative: With history of alcohol dependency and abuse. ED addiction medicine protocol was initiated. Since patient does not have symptoms of withdrawal or findings suggestive of withdrawal he received no medication. Will contact hospitalist for admission. Lab Data Attestation: I reviewed the patient's lab results. Lab results narrative: Comprehensive metabolic panel is unremarkable. Glucose is 124 with normal CO2 anion gap. Alcohol is less than 3. Talk screen is positive for amphetamines and THC. Labs: Laboratory Results - last 24 hr 01/21/23 01/21/23 08:40 08:55 Sodium 139 Potassium 3.7 Chloride 105 Carbon Dioxide 27.0 Anion Gap 7 BUN 11 Creatinine 0.95 Estim Creat Clear Calc 109.93 Est GFR (MDRD) Af Amer 114 Est GFR (MDRD) Non-Af 94 BUN/Creatinine Ratio 11.5 Glucose 124 H Calcium 8.6 Total Bilirubin 0.60 AST 17 ALT 31 Alkaline Phosphatase 77 Total Protein 7.5 Albumin 3.5 Globulin 4.0 Albumin/Globulin Ratio 0.9 Urine Opiates Screen NEGATIVE Urine Methadone Screen NEGATIVE Ur Barbiturates Screen NEGATIVE Ur Phencyclidine Scrn NEGATIVE Ur Amphetamines Screen POSITIVE H MDMA (Ecstasy) Screen NEGATIVE U Benzodiazepines Scrn NEGATIVE Urine Cocaine Screen NEGATIVE U Cannabinoids Screen POSITIVE H Ur Drug Screen Comment Ethyl Alcohol < 3.0 Discharge Plan Dx/Rx/DC Orders Clinical Impression: Amphetamine use, Alcohol abuse with physiological dependence, Cannabis use disorder Disposition Disposition: Acute Care Hospital [facility] Discharge Date/Time: 01/21/23 11:06
--- NOTE | 2023-01-21 10:24 | HP.PCM.HOS_ITS ---
HPI - General General Date of Admission: 01/21/23 Date of Service: 01/21/23 Chief Complaint: Requesting ETOH detox HPI Narrative ROSELYN LEA, is a 37 M with history of hypertension, alcohol use, cannabis use, amphetamine use who presented to [facility] 01/21/2023 for alcohol detox. He reports drinking heavily off-and-on since he was 25 and was here in April for alcohol detox. After he was discharged he eventually resumed drinking and has been drinking roughly a pint of vodka daily for the past 1 to 2 months. He realized he had a problem when he recently lost his job and decided he should quit drinking. Try to quit 2 days ago but began shaking and having withdrawal symptoms so he went out and bought alcohol and at that time he decided he should come to the hospital. Last drink was at midnight last night. Hospitalist consulted for admission. Patient seen at bedside and reports he is feeling intermittently hot and cold and fidgety, no other acute complaints at this time. He does endorse sometimes uses amphetamines when he gets blacked out and is unsure how he gets them. Also does smoke tobacco. [facility] Medical History (Updated 01/21/23 @ 10:[address] Keisha Lara MD) Bipolar affective disorder Hypertension Smoker Substance abuse in remission Home Medications omeprazole 20 mg capsule,delayed release 20 mg PO DAILY PRN acid reflux 04/25/22 [History Last Taken Unknown] amlodipine 10 mg tablet 10 mg PO DAILY #30 tabs 04/28/22 [Rx Last Taken 01/20/23] metoprolol tartrate 25 mg tablet 12.5 mg (1/2 x 25 mg) PO BID #30 tabs 04/28/22 [Rx Last Taken 01/20/23] Allergy/AdvReac Type Severity Reaction Status Date / Time No Known Allergies Allergy Verified 01/21/23 08:13 Social History (Updated 01/21/23 @ 10:[address] Lei Breen MD) household members: none Smoking Status: Current every day smoker tobacco type: cigarettes alcohol intake: current substance use type: marijuana ROS ROS Narrative General: Feels hot and cold HENT: Denies headache, denies stuffy nose, denies sore throat EYES: Denies changes in vision Resp: Denies cough, denies shortness of breath Cardiac: Denies chest pain GI: Denies abdominal pain, denies changes in bowel, denies nausea/vomiting : Denies changes in urination Extremity: Denies swelling MSK: Denies weakness Neuro: Has some chronic tingling in toes and fingers Heme: Denies any bleeding or bruising Skin: Denies rashes Psychiatric: Feels restless Vital Signs Vital Signs Vital Signs: 01/21/23 08:14 Temperature 97.3 F L Temperature Source Temporal Pulse Rate 86 Respiratory Rate 16 Blood Pressure 134/85 H Blood Pressure Mean 101 Pulse Ox 99 Weight Weight: 109.089 kg Body Mass Index (BMI) 34.4 Physical Exam Narrative General: Alert, oriented, appears restless HEENT: Atraumatic, normocephalic Eyes: Anicteric, normal conjunctiva, extraocular movements grossly intact Neck: Supple Respiratory: Clear to auscultation bilaterally, normal respiratory effort Cardiovascular: Regular rate and rhythm GI: Soft, nontender, nondistended Extremities: No edema Musculoskeletal: Moving all extremities Neuro: No overt focal neurological deficits Skin: No rashes appreciated Psych: Cooperative Results Lab / Micro Data 01/21/23 08:40 Labs: Laboratory Results - last 24 hr 01/21/23 08:40: Sodium 139, Potassium 3.7, Chloride 105, Carbon Dioxide 27.0, Anion Gap 7, BUN 11, Creatinine 0.95, Estim Creat Clear Calc 109.93, Est GFR (MDRD) Af Amer 114, Est GFR (MDRD) Non-Af 94, BUN/Creatinine Ratio 11.5, Glucose 124 H, Calcium 8.6, Total Bilirubin 0.60, AST 17, ALT 31, Alkaline Phosphatase 77, Total Protein 7.5, Albumin 3.5, Globulin 4.0, Albumin/Globulin Ratio 0.9, Ethyl Alcohol < 3.0 01/21/23 08:55: Urine Opiates Screen NEGATIVE, Urine Methadone Screen NEGATIVE, Ur Barbiturates Screen NEGATIVE, Ur Phencyclidine Scrn NEGATIVE, Ur Amphetamines Screen POSITIVE H, MDMA (Ecstasy) Screen NEGATIVE, U Benzodiazepines Scrn NEGATIVE, Urine Cocaine Screen NEGATIVE, U Cannabinoids Screen POSITIVE H, Ur Drug Screen Comment Assessment & Plan Assessment/Plan (1) Alcohol abuse with physiological dependence: (2) Amphetamine use: (3) Cannabis use disorder: (4) Hypertension: (5) Smoker: PLAN: Plan #Alcohol use disorder - We will begin CIWA every 4 for 24 hours, then every 6 for 24 hours, then every 12 until discharge -Will begin phenobarbital taper -Gabapentin 300 mg every 8 as needed -Will start Bentyl and hydroxyzine as needed as well as loperamide as needed -Trazodone 100 mg p.o. nightly as needed sleep -Begin thiamine and folic acid supplementation -Zofran as needed for nausea -Case management consult to assist with discharge planning -EtOH and drug screen will be obtained #Polysubstance use -Amphetamines and cannabis, advise cessation -Supportive care #Tobacco use -Advise cessation -Patient requested nicotine replacement, nicotine patch ordered #Hypertension -Continue metoprolol -Suspect decrease in BP with multiple supportive medications but can add back amlodipine if patient remains hypertensive #DVT ppx: Low risk, ambulatory Keisha Lara MD Time spent in the patient's overall evaluation,decision-making process, review of diagnostic data, adjustment of management, discussion with other providers, nursing nursing and ancillary staff involved in patient's care documentation, 50 minutes Charges/Coding Visit Charges Inpatient E&M: 17987 Init Hosp L1
[2023-01-21] MEDS: Phenobarbital 32.4 MG Tablet PO ×4 (12:02→23:05)
[2023-01-21] MEDS: Gabapentin 300 MG Capsule PO ×2 (12:03→20:20)
[2023-01-21] MEDS: hydrOXYzine PAM 25 MG Capsule 50 MG PO (18:45)
[2023-01-21] MEDS: Dicyclomine 10 MG Capsule 20 MG PO (20:20)
[2023-01-21] MEDS: Metoprolol Tartrate 25 MG Tablet 12.5 MG PO (20:21)
[2023-01-22] VITALS (8 sets, daily range): BP systolic 124–141; BP diastolic 78–96; PULSE 64–85; RESP 15–18; TEMP 36.6–36.8; O2SAT 95–100
[2023-01-22] MEDS: Phenobarbital 32.4 MG Tablet PO ×6 (03:15→22:54)
[2023-01-22] MEDS: Thiamine Hydrochloride 100 MG Tablet PO (10:12)
[2023-01-22] MEDS: Folic Acid 1 MG Tablet PO (10:12)
[2023-01-22] MEDS: Metoprolol Tartrate 25 MG Tablet 12.5 MG PO ×2 (10:17→22:54)
--- NOTE | 2023-01-22 13:02 | ADDICTION ---
This specification writer met with PT to conduct ASAM, MSE, AUDIT assessments and to plan for d/c. PT A+Ox4 and participated actively. All assessments completed and dc plan placed in PT's chart. PT plans to f/u with [facility] for inpatient residential treatment services. The treatment center will provide transportation post d/c from [facility].
--- NOTE | 2023-01-22 15:50 | PN.HOSP_ITS ---
Reason for Visit Reason for Visit: Diagnoses Alcohol dependence, uncomplicated (01/21/23) Cannabis use, unspecified, uncomplicated (01/21/23) Other stimulant use, unspecified, uncomplicated (01/21/23) Nicotine dependence, unspecified, uncomplicated (01/21/23) Essential (primary) hypertension (01/21/23) Subjective Subjective Patient feeling tired, presently resting in bed with no new complaints Objective Data Objective Data Vital Signs: Vital Signs Temp Pulse Resp BP Pulse Ox O2 Del Method 97.8 F 79 18 141/78 H 99 Room Air 01/22/23 15:30 01/22/23 15:30 01/22/23 15:30 01/22/23 15:30 01/22/23 15:30 01/22/23 15:33 Oxygen Delivery Method Room Air Weight: 107.6 kg Body Mass Index (BMI) 34.0 Intake & Output: Intake and Output for Last 24 Hours 01/20/23 01/21/23 01/22/23 23:59 23:59 23:59 Intake Total 360 / 360 480 / 480 Balance 360 / 360 480 / 480 Lab / Micro Data 01/21/23 08:40 Physical Exam Narrative General: Resting comfortably in bed, no apparent distress HEENT: Atraumatic, normocephalic Eyes: extraocular movements grossly intact Neck: Supple Respiratory: normal respiratory effort Cardiovascular: no edema appreciated GI: nondistended Extremities: Moving all extremities Neuro: No overt focal neurological deficits Psych: Overall cooperative Assessment & Plan Assessment/Plan (1) Alcohol abuse with physiological dependence: (2) Amphetamine use: (3) Cannabis use disorder: (4) Hypertension: (5) Smoker: PLAN: Plan #Alcohol use disorder - We will begin CIWA every 4 for 24 hours, then every 6 for 24 hours, then every 12 until discharge -Will begin phenobarbital taper -Gabapentin 300 mg every 8 as needed -Will start Bentyl and hydroxyzine as needed as well as loperamide as needed -Trazodone 100 mg p.o. nightly as needed sleep -Begin thiamine and folic acid supplementation -Zofran as needed for nausea -Case management consult to assist with discharge planning -EtOH and drug screen will be obtained -01/22: UDS positive for amphetamines and cannabinoids, continue phenobarb taper. Patient to follow-up with [facility] for inpatient residential treatment #Polysubstance use -Amphetamines and cannabis, advise cessation -Supportive care #Tobacco use -Advise cessation -Patient requested nicotine replacement, nicotine patch ordered #Hypertension -Continue metoprolol -Suspect decrease in BP with multiple supportive medications but can add back amlodipine if patient remains hypertensive #DVT ppx: Low risk, ambulatory Keisha Lara MD Time spent in the patient's overall evaluation,decision-making process, review of diagnostic data, adjustment of management, discussion with other providers, nursing nursing and ancillary staff involved in patient's care documentation, 25 minutes Charges/Coding Visit Charges Inpatient E&M: 88389 Subs Hosp L1
[2023-01-22] MEDS: Gabapentin 300 MG Capsule PO (20:11)
[2023-01-23] VITALS (7 sets, daily range): BP systolic 112–141; BP diastolic 62–95; PULSE 66–82; RESP 15–18; TEMP 36.6–36.8; O2SAT 96–99
[2023-01-23] MEDS: Phenobarbital 32.4 MG Tablet PO ×5 (03:02→20:09)
[2023-01-23] MEDS: Thiamine Hydrochloride 100 MG Tablet PO (10:53)
[2023-01-23] MEDS: Folic Acid 1 MG Tablet PO (10:54)
[2023-01-23] MEDS: Metoprolol Tartrate 25 MG Tablet 12.5 MG PO ×2 (10:54→21:02)
--- NOTE | 2023-01-23 12:07 | PN_ITS ---
Subjective Subjective Patient seen and examined. HE was resting calmly and had no complaints. Review of systems is otherwise negative. Objective Data Objective Data Vital Signs: Vital Signs Temp Pulse Resp BP Pulse Ox O2 Del Method 97.8 F 74 16 125/91 H 97 Room Air 01/23/23 10:50 01/23/23 10:54 01/23/23 10:50 01/23/23 10:50 01/23/23 10:50 01/23/23 10:59 Oxygen Delivery Method Room Air Weight: 237 lb 3.478 oz Body Mass Index (BMI) 34.0 Intake & Output: Intake and Output for Last 24 Hours 01/21/23 01/22/23 01/23/23 23:59 23:59 23:59 Intake Total 360 / 360 1080 / 1080 300 / 300 Balance 360 / 360 1080 / 1080 300 / 300 Lab / Micro Data 01/21/23 08:40 Physical Exam Const alert, oriented x3 and no apparent distress General Appearance: cooperative and well developed HEENT normocephalic, head/scalp atraumatic and moist oral mucous membranes Eyes EOMs intact bilaterally Neck no lymphadenopathy, supple and no JVD Lymph Lymphatic: no lymphadenopathy noted and no lymphedema noted Resp normal respiratory effort, normal air movement and clear to auscultation bilaterally Cardio regular rate, regular rhythm, S1 normal heart sound, S2 normal heart sound and no murmurs GI normal to inspection, nondistended, normoactive bowel sounds, soft to palpation and non-tender Extremity normal capillary refill, no clubbing, cyanosis or edema and no calf tenderness Skin General Skin Exam: no breakdown Neuro CN's II-XII intact bilaterally, no focal motor deficits and no sensory deficits noted Motor Exam: strength 5/5 throughout Psych thought process normal, cooperative and affect normal Appearance: appropriate Assessment & Plan Assessment/Plan (1) Alcohol abuse with physiological dependence: PLAN: Plan #Acute alcohol withdrawal * on alcohol withdrawal protocol with phenobarbital * on thiamine, folic acid and multivite. * on adjunctive meds for symptomatic relief * #Polysubstance abuse: uses amphetamines and cannabis. Counseled to quit. #Nicotine dependence: counseled to quit. #Hypertension; on metoprolol DVT prophylaxis: low risk, encourage to ambulate. Charges/Coding Visit Charges Inpatient E&M: 71276 Subs Hosp L2
[2023-01-23] MEDS: 0.9% Saline Lock 10 ML Syringe IV (21:07)
[2023-01-23] MEDS: Dicyclomine 10 MG Capsule 20 MG PO (22:09)
[2023-01-24] VITALS (7 sets, daily range): BP systolic 109–136; BP diastolic 71–97; PULSE 61–80; RESP 16–18; TEMP 36.2–36.9; O2SAT 95–99
[2023-01-24] MEDS: Phenobarbital 32.4 MG Tablet PO ×4 (02:26→19:25)
[2023-01-24] MEDS: Thiamine Hydrochloride 100 MG Tablet PO (09:30)
[2023-01-24] MEDS: Folic Acid 1 MG Tablet PO (09:30)
[2023-01-24] MEDS: Metoprolol Tartrate 25 MG Tablet 12.5 MG PO ×2 (09:30→22:09)
--- NOTE | 2023-01-24 10:06 | PN_ITS ---
Subjective Subjective Patient seen and examined. He had no complaints. Review of systems is otherwise negative. He is for discharge to an inpatient detox facility tomorrow. Objective Data Objective Data Vital Signs: Vital Signs Temp Pulse Resp BP Pulse Ox O2 Del Method 98.5 F 76 16 134/97 H 97 Room Air 01/24/23 09:25 01/24/23 09:30 01/24/23 09:25 01/24/23 09:25 01/24/23 09:25 01/24/23 09:25 Oxygen Delivery Method Room Air Weight: 237 lb 3.478 oz Body Mass Index (BMI) 34.0 Intake & Output: Intake and Output for Last 24 Hours 01/22/23 01/23/23 01/24/23 23:59 23:59 23:59 Intake Total 1080 / 1080 300 / 300 Balance 1080 / 1080 300 / 300 Lab / Micro Data 01/21/23 08:40 Physical Exam Const alert, oriented x3 and no apparent distress General Appearance: cooperative and well developed HEENT normocephalic, head/scalp atraumatic and moist oral mucous membranes Eyes PERRL and EOMs intact bilaterally Neck no lymphadenopathy, supple and no JVD Lymph Lymphatic: no lymphadenopathy noted and no lymphedema noted Resp normal respiratory effort, normal air movement and clear to auscultation bilaterally Cardio regular rate, regular rhythm, S1 normal heart sound, S2 normal heart sound and no murmurs GI normal to inspection, nondistended, normoactive bowel sounds, soft to palpation and non-tender Extremity normal capillary refill, no clubbing, cyanosis or edema and no calf tenderness Skin General Skin Exam: no breakdown Neuro CN's II-XII intact bilaterally, no focal motor deficits and no sensory deficits noted Motor Exam: strength 5/5 throughout Psych thought process normal, cooperative and affect normal Appearance: appropriate Assessment & Plan Assessment/Plan (1) Alcohol abuse with physiological dependence: PLAN: Plan #Acute alcohol withdrawal * on alcohol withdrawal protocol with phenobarbital * on thiamine, folic acid and multivite. * on adjunctive meds for symptomatic relief * #Polysubstance abuse: uses amphetamines and cannabis. Counseled to quit. #Nicotine dependence: counseled to quit. #Hypertension; on metoprolol DVT prophylaxis: low risk, encourage to ambulate. Disposition: for dc to [facility] tomorrow Charges/Coding Visit Charges Inpatient E&M: 21330 Subs Hosp L2
[2023-01-24] MEDS: Gabapentin 300 MG Capsule PO (19:42)
[2023-01-25 02:39] VITALS: BP 129/82; PULSE 63; RESP 16; TEMP 36.7; O2SAT 98
[2023-01-25] MEDS: Phenobarbital 32.4 MG Tablet PO ×2 (02:40→06:33)
[2023-01-25 06:30] VITALS: BP 124/85; PULSE 59; RESP 18; TEMP 36.2; O2SAT 98
--- NOTE | 2023-01-25 08:26 | PCM.DC.SUM ---
Providers Date of Admission: 01/21/23 Date of Discharge: 01/25/23 Primary Care Physician: No Primary Care Phys Reason For Visit: ALCOHOL DETOX Diagnosis Discharge Diagnosis (1) Alcohol abuse with physiological dependence: Status: Acute Code(s): F10.20 - Alcohol dependence, uncomplicated Plan #Acute alcohol withdrawal on alcohol withdrawal protocol with phenobarbital on thiamine, folic acid and multivite. on adjunctive meds for symptomatic relief #Polysubstance abuse: uses amphetamines and cannabis. Counseled to quit. #Nicotine dependence: counseled to quit. #Hypertension; on metoprolol DVT prophylaxis: low risk, encourage to ambulate. Disposition: for dc to [facility] tomorrow Medications at Discharge Home Medications omeprazole 20 mg capsule,delayed release 20 mg PO DAILY PRN acid reflux 04/25/22 amlodipine 10 mg tablet 10 mg PO DAILY #30 tabs 04/28/22 metoprolol tartrate 25 mg tablet 12.5 mg (1/2 x 25 mg) PO BID #30 tabs 04/28/22 Hospital Course Operations None Procedures None Summary of Care Provided Minutes Spent on Discharge: 45 Hospital Course: Patient is a 37 y/o male with a PP M as outlined which includes alcohol use disorder, hypertension, marijuana and metamphetamine abuse. He was admitted via the ED On 01/21/2023. He had been drinking heavily for at least 12 years and had been admitted previously for alcohol detox. He tried to stop drinking on his own about 2 days prior to admission, and started having withdrawal symptoms. He usually drank 1-2 pints of vodka daily. Due to his onset of withdrawal symtoms, he went out to buy alchol, but then decided to come ot the ED to be managed for acute alcohol withdrawal. He was admitted and managed for acute alcohol withdrawal. On admission, urine tox showed was positive for metamphetamines and cannabinoids. He was started on acute alcohol withdrawal protocol with phenobarbital. He tolerated the detox process with phenobarbital. He opted for inpatient rehab after the acute detox process, and was discharged to the [facility] on 01/25/2023. Patient was seen and examined prior to discharge. He had no active complaints and had an uneventful night. Review of systems was otherwise negative. Labs and vitals reviewed. Home meds reviewed and reconciled. Physical Exam Const alert, oriented x3 and no apparent distress General Appearance: cooperative, comfortable, well kempt and well developed HEENT normocephalic, head/scalp atraumatic, hearing grossly normal bilaterally and moist oral mucous membranes Mouth: oral and palatal mucosa normal Eyes PERRL, EOMs intact bilaterally and conjunctivae normal Neck no lymphadenopathy, supple and no JVD Lymph Lymphatic: no lymphadenopathy noted and no lymphedema noted Resp normal respiratory effort, normal air movement, no use of accessory muscles and clear to auscultation bilaterally Cardio regular rate, regular rhythm, S1 normal heart sound, S2 normal heart sound and no murmurs GI normal to inspection, nondistended, normoactive bowel sounds, soft to palpation and non-tender Extremity normal to inspection, full ROM, normal capillary refill, no clubbing, cyanosis or edema and no calf tenderness Skin no rashes or lesions noted General Skin Exam: no breakdown Neuro CN's II-XII intact bilaterally, moves all extremities, no focal motor deficits and no sensory deficits noted Sensorium / Orientation: awake and alert Motor Exam: strength 5/5 throughout Psych thought process normal, cooperative and affect normal Appearance: appropriate Weight / BMI Weight Weight: 237 lb 3.478 oz Body Mass Index (BMI) 34.0 ABG / Lab / Microbiology Data 01/21/23 08:40 D/C Instructions Discharge Diet: No restrictions Discharge Activity: Return to Normal Activity Weight Bearing Status: Weight bearing as tolerated Call your doctor if you observe: Fever of 101 or Higher, Shortness of breath, Swelling in the ankles, Chest pain, Increased palpitations (irregular heartbeat) and Calf discomfort Meaningful Use Info Meaningful Use Diagnoses (Choose all that apply): None applicable Discharge Plan Admission Admit Date/Time: 01/21/23 10:24 Primary Reason for Your Visit: acute alcohol withdrawal Attending Provider: Genesis Barreto Primary Care Provider: Care Physician,No Primary Consulting Providers: Keisha Lara Discharge Orders/Prescriptions Prescriptions: Continued omeprazole 20 mg Capsule,Delayed Release(Dr/Ec) 20 mg PO DAILY PRN (Reason: acid reflux) amlodipine 10 mg Tablet 10 mg PO DAILY Qty: 30 2RF metoprolol tartrate 25 mg Tablet 12.5 mg PO BID Qty: 30 2RF Referrals / Follow Up: Giovana Morse MD [Med Staff - Active Staff] - Within 1 Month (see to establish PCP care) Care Physician,No Primary [Primary Care Provider] - Disposition Disposition (needs filled in before D/C Order can be placed): Home, Self Care Charges/Coding Visit Charges Inpatient E&M: 66637 Disch Hosp >30min
[2023-01-25 09:22] VITALS: BP 137/87; PULSE 81
[2023-01-25] MEDS: Metoprolol Tartrate 25 MG Tablet 12.5 MG PO (09:22)
[2023-01-25] MEDS: Folic Acid 1 MG Tablet PO (09:22)
[2023-01-25] MEDS: Thiamine Hydrochloride 100 MG Tablet PO (09:22)
--- NOTE | 2023-01-25 10:21 | PHA.DC.MR.R ---
Pharmacy [facility]con[facility] has performed discharge medication reconciliation for this patient. The patient's discharge medication list was reviewed for discrepancies and discrepancies were resolved. Medications at Discharge Home Medications omeprazole 20 mg capsule,delayed release 20 mg PO DAILY PRN acid reflux 04/25/22 amlodipine 10 mg tablet 10 mg PO DAILY #30 tabs 04/28/22 metoprolol tartrate 25 mg tablet 12.5 mg (1/2 x 25 mg) PO BID #30 tabs 04/28/22
== END 2023-01-25 13:10 | disposition home or self-care (01) | DRG 897 ==
LOC: ED 10:05 → PCU 10:48
PROVIDERS: Admitting Provider Internal Medicine; Emergency Provider Emergency Medicine; Visit Provider Student in an Organized Health Care Education/Training Program
DX: F10.239 Alcohol dependence with withdrawal, unspecified (principal); F31.9 Bipolar disorder, unspecified; E66.9 Obesity, unspecified; F17.210 Nicotine dependence, cigarettes, uncomplicated; I10 Essential (primary) hypertension; F12.10 Cannabis abuse, uncomplicated; Y90.0 Blood alcohol level of less than 20 mg/100 ml; Z79.899 Other long term (current) drug therapy; Z68.34 Body mass index [BMI] 34.0-34.9, adult
CPT/HCPCS: 80053; 80307; 82077; 99283; A4216